=== PATIENT | male | born 1955 | race African-American/Black ===

== ENCOUNTER 2021-09-06 22:37 | Emergency (ER) | payer OTHER, SELFPAY ==
[2021-09-06 22:48] VITALS: BP 153/88; PULSE 100; RESP 16; TEMP 36.7; O2SAT 100
[2021-09-07 01:30] VITALS: PULSE 78; RESP 18; O2SAT 100
[2021-09-07] MEDS: FLUORESCEIN SOD 1 MG/STRIP EACH EYE (01:38)
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
[2021-09-07 02:49] VITALS: BP 154/83; PULSE 75; RESP 16; O2SAT 97
== END 2021-09-07 02:49 | disposition home or self-care (01) ==
PROVIDERS: Emergency Provider Emergency Medicine
DX: H53.8 Other visual disturbances (principal)
CPT/HCPCS: 99282

== ENCOUNTER 2021-10-27 12:28 | Inpatient (IN) | payer OTHER, SELFPAY ==
[2021-10-27] VITALS (31 sets, daily range): BP systolic 117–150; BP diastolic 81–99; PULSE 65–101; RESP 9–21; TEMP 36.2–36.4; O2SAT 95–100
--- NOTE | ~2021-10-27 | MR_ITS ---
EXAMINATION: MR brain/brain stem wo/w con DATE: 10/28/2021 09:11 INDICATION: Diplopia TECHNIQUE: Magnetic resonance imaging (MRI) of the brain and brainstem was performed without and with 20 mL Multihance intravenous contrast. Sequences included sagittal and axial T1-weighted SE, axial d iffusion-weighted FS SE, axial T2*-weighted GRE, axial 3D SWAN, axial T2-weighted FLAIR, and axial T2 -weighted FSE. Postcontrast axial and coronal T1-weighted SE was obtained. Apparent diffusion coeffic ient (ADC) maps were created. COMPARISON: CT dated 10/27/2021 FINDINGS: Small region of restricted diffusion at the right occipital lobe consistent with acute infarct. Small region of chronic encephalomalacia in the anterior right frontal lobe consistent with chronic infarc t. No intracranial hemorrhage or abnormal intracranial mass lesion. There are scattered areas of nons pecific increased T2-weighted signal intensity in the cerebral white matter, predominantly involving the deep and periventricular white matter which is within normal limits for age. There are no intrapa renchymal signal abnormalities seen on the other pulse sequences. The ventricles are symmetric and no rmal in size. There are no abnormal extra-axial fluid collections. Flow voids are seen in the cerebra l arteries on the T2-weighted sequences consistent with their expected patency. Mucoperiosteal thicke yolanda the bilateral ethmoid sinuses. Visualized orbits and soft tissues are unremarkable. There are no areas of abnormal enhancement on the post contrast images. IMPRESSION: 1. Small acute infarct in the right occipital lobe. 2. Small region of encephalomalacia consistent with chronic infarct in the anterior right frontal lob e. Reviewed, dictated and finalized at location A. IMPRESSION: 1. Small acute infarct in the right occipital lobe. 2. Small region of encephalomalacia consistent with chronic infarct in the ante rior right frontal lobe.
--- NOTE | ~2021-10-27 | CT_ITS ---
EXAMINATION: CT brain wo con DATE: 10/27/2021 13:23 INDICATION: Left eye palsy TECHNIQUE: Computed tomography (CT) of the head was performed without intravenous contrast. The dose- length product was 605.33 mGy-cm. Automated exposure control and iterative reconstruction technique w ere employed. COMPARISON: CT dated 09/08/2015 FINDINGS: Chronic right frontal lobe infarction with encephalomalacia. Generalized atrophy. There are scattered mild periventricular and subcortical white matter changes, most likely related to small ve ssel ischemic disease (microangiopathy). There is intracranial atherosclerosis. No ventriculomegaly o r midline shift. There is intracranial atherosclerosis. No acute intracranial hemorrhage, infarction or mass. IMPRESSION: 1. No acute intracranial abnormality. 2: Chronic right frontal lobe infarction. 3: Chronic age-related findings. Reviewed, dictated and finalized at location A.
--- NOTE | ~2021-10-27 | CT_ITS ---
EXAMINATION: CTA brain carotid DATE: 10/28/2021 18:15 CDT INDICATION: Acute CVA TECHNIQUE: Computed tomographic angiography (CTA) of the head was performed with 100 mL Omnipaque-300 intravenous contrast. CTA of the neck was performed with intravenous contrast. The dose-length produ ct was 1188.63 mGy-cm. Maximum intensity projection and volume rendered 3D-reconstructions were creat ed by the technologist on a separate workstation. Automated exposure control and iterative reconstruc tion technique were employed. COMPARISON: CT dated 10/27/2021 and MRI dated 10/28/2021. FINDINGS: HEAD CTA: There is atherosclerosis of the vertebral arteries with occlusion of the left vertebral art brando just prior to the basilar artery. There is moderate atherosclerosis of the right vertebral artery . There is atherosclerosis of the internal carotid arteries at the cavernous sinus. The anterior, mid dle and posterior cerebral arteries are symmetric. No evidence for aneurysm or occlusion. NECK CTA: There is atherosclerosis of the aorta. The common and internal carotid arteries are unremar kable. There is normal enhancement of the external carotid arteries. No significant narrowing of the internal carotid arteries. Visualized aspects of the lung parenchyma is unremarkable. There is 0% stenosis of the proximal right internal carotid artery relative to normal distal artery l umen diameter (NASCET criteria). There is 0% stenosis of the proximal left internal carotid artery re lative to normal distal artery lumen diameter. IMPRESSION: 1. 0% stenosis of the proximal right internal carotid artery relative to normal distal artery lumen d iameter (NASCET criteria). 2. 0% stenosis of the proximal left internal carotid artery relative to normal distal artery lumen di ameter. 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 Otherwise, unremarkabl e CT angiogram of the brain without evidence for significant abnormality of the anterior, middle or p osterior cerebral arteries.. Reviewed, dictated and finalized at location A. IMPRESSION: 1. 0% stenosis of the proximal right internal carotid artery relative to normal distal artery lumen diameter (NASCET criteria). 2. 0% stenosis of the proximal left internal carotid artery relative to normal distal artery lumen diameter. 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 Otherwise, unremarkable CT angiogram of the brain without evidence for signific ant abnormality of the anterior, middle or posterior cerebral arteries..
--- NOTE | ~2021-10-27 | XR_ITS ---
EXAMINATION: XR chest 2V DATE: 10/27/2021 13:23 INDICATION: Left eye palsy TECHNIQUE: Frontal and lateral views of the chest are obtained COMPARISON: 12/23/2012 FINDINGS: The lungs are free of acute opacities. No pleural effusion or pneumothorax. The cardiomedia stinal silhouette is normal. There is mild thoracic spondylosis. IMPRESSION: 1. No acute cardiopulmonary abnormality. Reviewed, dictated and finalized at location B.
--- NOTE | 2021-10-27 13:02 | ECG_ITS ---
Measurements Intervals [place] Rate: 95 P: 42 OR: 166 QRS: -18 QRSD: 99 T: 31 QT: 344 QTc: 433 Interpretive Statements SINUS RHYTHM INCOMPLETE RIGHT BUNDLE BRANCH BLOCK ST ELEVATION IN ANTEROLATERAL LEADS- PROBABLY EARLY REPOLARIZATION ABNORMALITY BASELINE ARTIFACT- I, II BORDERLINE ECG Electronically Signed On 10-27-2021 15:35:38 CDT by Tru Nath D.O.
[2021-10-27 13:16] LABS: Glucose Point of Care 115 mg/dl (65-105)
[2021-10-27 13:55] LABS: Basophils Percent Auto 0.6 % (0.2-1.2); Eosinophils Absolute Auto 0.1 K/mm3 (0-0.3); Eosinophils Percent Auto 1.7 % (0-4.4); Hematocrit 42.4 % (42.0-52.0); Hemoglobin 13.7 g/dL (14.0-18.0); Immature Granulocyte Absolute 0.01 K/mm3 (0.00-0.031); Immature Granulocyte Percent A 0.2 % (0-0.5); Lymphocytes Absolute Auto 2.71 K/mm3 (0.9-3.2); Lymphocytes Percent Auto 41.9 % (18.3-44.2); Mean Corpuscular HGB Conc 32.3 g/dl (32-36); Mean Corpuscular Hemoglobin 31.3 pg (26-34); Mean Corpuscular Volume 96.8 fl (80-100); Mean Platelet Volume 9.5 fl (7.4-10.4); Monocytes Absolute Auto 0.7 K/mm3 (0.1-0.6); Neutrophils Absolute Auto 2.9 K/mm3 (1.3-6.7); Neutrophils Percent Auto 44.6 % (45.5-73.1); Platelet Count Result 266 k/mm3 (150-375); Red Blood Count 4.38 M/mm3 (4.6-6.20); Red Cell Distribution Width 12.7 % (11.5-14.5); White Blood Count 6.5 K/mm3 (4.5-10.0)
[2021-10-27 14:06] LABS: Alanine Aminotransferase 12 U/L (6-50); Albumin Level 3.9 g/dL (3.5-5.1); Alkaline Phosphatase 79 U/L (38-126); Anion Gap 4 mmol/L (8-16); Aspartate Amino Transferase 24 U/L (17-59); Bilirubin,Total 0.9 mg/dL (0.2-1.3); Blood Urea Nitrogen 12 mg/dL (9-20); Calcium 9.1 mg/dL (8.4-10.2); Carbon Dioxide 29 mmol/L (22-30); Chloride 106 mmol/L (98-107); Estimated CRCL calculation 54 ml/min; Estimated Glomerular Filt Rate > 60; Glucose 108 mg/dL (65-110); Potassium 3.9 mmol/L (3.4-5.0); Sodium 139 mmol/L (137-145)
[2021-10-27 14:09] LABS: Prothrombin Time 13.1 Seconds (11.1-14.7)
[2021-10-27 14:10] LABS: Partial Thromboplastin Time 30.1 SECONDS (22.3-36.8)
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
--- NOTE | 2021-10-27 18:45 | ADMGEN ---
This patient, Robin Washington Jr., was admitted to 2 Medical Room 260-. Patient/family oriented to hospital policies and general routines including ID bracelet, bed and alarms, visiting hours, pain management, procedures, bathroom and other care routines, personal items, smoking policy, room service/diet, and visiting hours. Information on how to activate the Rapid Response Team has been discussed. Patient/Family are encouraged to report perceived risks to care and to ask questions if they do not understand what they are told or what they should do.
[2021-10-27 22:13] LABS: Cholesterol 251 mg/dL (0-200); HDL Direct 34 mg/dL; Triglycerides 141 mg/dL (<150)
[2021-10-27 22:24] LABS: LDL Cholesterol Direct 158 mg/dL
[2021-10-28] VITALS (8 sets, daily range): BP systolic 110–145; BP diastolic 48–75; PULSE 56–83; RESP 16–20; TEMP 35.6–36.5; O2SAT 97–100
[2021-10-28] MEDS: FLUTICASONE PROPIONATE 0.05% NA SPR 16 GM BTL (*BKC) 2 SPRAY NASAL (09:37)
[2021-10-28] MEDS: LORATADINE 10 MG TABLET PO (09:37)
[2021-10-28] MEDS: PANTOPRAZOLE 40 MG TABLET PO (09:37)
[2021-10-28] MEDS: ASPIRIN 81 MG ENTERIC TABLET PO (09:37)
[2021-10-28] MEDS: TOBRAMYCIN/DEXAMETHASONE OP 2.5 ML BTL 1 DROP EACH EYE (09:37)
--- NOTE | 2021-10-28 11:35 | PC.NURSE ---
Spoke with Dr. Iyer about patient's brain MRI results from this morning. Notified him that patient's MRI showed a small acute infarct in right occipital lobe. Dr. Iyer states he will be by to speak with patient in afternoon.
--- NOTE | 2021-10-28 14:35 | PM.IMPN ---
Progress Note: A&P Assessment and Plan (1) Acute CVA (cerebrovascular accident): Code(s): I63.9 - Cerebral infarction, unspecified Status: Acute Assessment and Plan: Patient with history of CVA >10 years ago presented with visual deficit Head CT on presentation showed no acute findings, only evidence of chronic right frontal lobe infarct Follow-up MRI showed small acute infarct in the right occipital lobe Will obtain CTA of the head and neck Echocardiogram with bubble study pending. This may not be able to be completed this hospitalization on the weekend, therefore may be done outpatient Continue to monitor on telemetry. Patient in normal sinus rhythm, occasional episodes of sinus bradycardia. No dysrhythmias. Will plan for 30 day event monitor on discharge EEG is pending Appreciate neurology consultation Continue aspirin 81 mg daily Begin atorvastatin 40 mg daily. Lipid panel reviewed. Check A1c Dietary and lifestyle modification PT and OT eval (2) Vision changes: Code(s): H53.9 - Unspecified visual disturbance Status: Acute Assessment and Plan: Likely secondary to occipital CVA (3) Elevated blood pressure reading: Code(s): R03.0 - Elevated blood-pressure reading, without diagnosis of hypertension Status: Acute Assessment and Plan: Blood pressure reviewed and has been at times elevated, however generally reasonably controlled Allow for permissive hypertension in the setting of acute CVA Monitor BP trends Patient is not on any antihypertensives (4) Depression with anxiety: Code(s): F41.8 - Other specified anxiety disorders Status: Acute Assessment and Plan: No acute issues at this time Patient is not on any medications for this Subjective Date/time seen: 10/28/21 14:35 Interval history: Date of service: 10/28/2021 Robin Washington Jr is a 66-year-old male with a history of CVA, depression, anxiety who is seen in follow-up for visual disturbances. MRI today revealed acute occipital infarct. Patient states he is feeling well today. He continues to endorse visual disturbances. His main concern is issues with his peripheral vision. He also is having trouble seeing further away and he has floaters in his vision. Denies scotoma. Denies diplopia. Denies eye pain. States ?things are out of focus.? He denies weakness, loss of balance or coordination, he denies issues with speech, denies dysphagia. He has been able to walk around without difficulty. Denies feeling dizzy or lightheaded. Does endorse a slight frontal headache. Review of Systems Review of Systems: All systems reviewed & are unremarkable except as noted in HPI and below Exam Narrative: General: Well-nourished, well-appearing 66-year-old male, sitting up in bed, comfortable, NARD Neuro: awake, alert and oriented x4, speech clear, CN II-XII intact, no pronator drift, bilateral curb and gutter laborer strength equal, gait normal HEENMT: normocephalic, atraumatic, EOMI, PERRL, sclerae anicteric Respiratory: clear to auscultation bilaterally, nonlabored breathing Cardio: regular rate, regular rhythm with S1-S2 Abdomen: nondistended, normoactive bowel sounds, soft, nontender to palpation Extremities: no edema, erythema, or tenderness to palpation, DP pulses 2+ bilaterally Skin: no rashes or lesions, warm and dry Psych: appropriate mood and affect, judgment and insight intact Objective Data Vital Signs Vital Signs: Vital Signs - 24 hr 10/27/21 14:56 10/27/21 15:43 10/27/21 16:01 Temperature Pulse Rate 76 73 76 Respiratory Rate 10 L 19 15 Blood Pressure 131/91 H 136/90 150/94 H Pulse Oximetry 100 100 97 Oxygen Delivery 10/27/21 16:40 10/27/21 17:31 10/27/21 14:45 Temperature Pulse Rate 84 71 81 Respiratory Rate 20 11 L 10 L Blood Pressure 144/99 H 134/89 Pulse Oximetry 99 99 99 Oxygen Delivery 10/27/21 14:46 10/27/21 15:21 10/27/21 15:31
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
[2021-10-29] VITALS (8 sets, daily range): BP systolic 112–140; BP diastolic 59–94; PULSE 61–99; RESP 16–20; TEMP 36.2–36.5; O2SAT 99–100
[2021-10-29 05:48] LABS: Hematocrit 42.7 % (42.0-52.0); Hemoglobin 13.8 g/dL (14.0-18.0); Mean Corpuscular HGB Conc 32.3 g/dl (32-36); Mean Corpuscular Hemoglobin 31.2 pg (26-34); Mean Corpuscular Volume 96.6 fl (80-100); Platelet Count Result 240 k/mm3 (150-375); Red Blood Count 4.42 M/mm3 (4.6-6.20); Red Cell Distribution Width 12.7 % (11.5-14.5)
[2021-10-29 06:05] LABS: Anion Gap 2 mmol/L (8-16); Blood Urea Nitrogen 12 mg/dL (9-20); Calcium 9.4 mg/dL (8.4-10.2); Carbon Dioxide 26 mmol/L (22-30); Chloride 109 mmol/L (98-107); Estimated CRCL calculation 67 ml/min; Estimated Glomerular Filt Rate > 60; Glucose 101 mg/dL (65-110); Potassium 3.9 mmol/L (3.4-5.0); Sodium 137 mmol/L (137-145)
[2021-10-29 06:22] LABS: Hemoglobin A1C 4.7 % (<5.7)
[2021-10-29] MEDS: PANTOPRAZOLE 40 MG TABLET PO (09:27)
[2021-10-29] MEDS: FLUTICASONE PROPIONATE 0.05% NA SPR 16 GM BTL (*BKC) 2 SPRAY NASAL (09:27)
[2021-10-29] MEDS: ATORVASTATIN 40 MG TABLET PO (09:27)
[2021-10-29] MEDS: TOBRAMYCIN/DEXAMETHASONE OP 2.5 ML BTL 1 DROP EACH EYE (09:27)
[2021-10-29] MEDS: ASPIRIN 81 MG ENTERIC TABLET PO (09:27)
[2021-10-29] MEDS: LORATADINE 10 MG TABLET PO (09:27)
[2021-10-29] MEDS: CLOPIDOGREL BISULFATE 300 MG TABLET PO (13:14)
--- NOTE | 2021-10-29 13:44 | PM.DS ---
DS: Admitting Diagnosis Discharge Date 10/29/2021 Admitting Diagnosis Visual disturbance DS: Discharge Diagnosis Discharge Diagnosis (1) Acute CVA (cerebrovascular accident): Code(s): I63.9 - Cerebral infarction, unspecified Status: Acute Assessment and Plan: Patient with history of CVA >10 years ago presented with visual deficit Head CT on presentation showed no acute findings, only evidence of chronic right frontal lobe infarct Follow-up MRI showed small acute infarct in the right occipital lobe CTA of the head and neck showed 0% stenosis of the proximal right and left internal carotid arteries with left vertebral artery occlusion. This is likely unrelated as patient had right occipital CVA. Echocardiogram with bubble study ordered for completion outpatient. Monitored on telemetry with normal sinus rhythm, occasional episodes of sinus bradycardia. No dysrhythmias. 30 day event monitor ordered on discharge He was seen in consultation by neurology and will follow up in 6 weeks. Aspirin 81 mg daily Clopidogrel 75 mg daily. Loading dose given during admission. Atorvastatin 40 mg daily. Lipid panel reviewed. Educated regarding dietary and lifestyle modification (2) Vision changes: Code(s): H53.9 - Unspecified visual disturbance Status: Acute Assessment and Plan: Acute disturbance secondary to occipital CVA with more chronic issues with distance vision for which he will be evaluated by optometry. (3) Elevated blood pressure reading: Code(s): R03.0 - Elevated blood-pressure reading, without diagnosis of hypertension Status: Acute Assessment and Plan: Blood pressure reviewed and initially was slightly elevated (150s/90s) but stabilized Initial elevated BP not corrected in the setting of acute CVA Patient was not on PO antihypertensives No medication was started as subsequent blood pressures were well controlled. Patient instructed to monitor BP intermittently at home and follow up with PCP in 1 week for BP check. (4) Depression with anxiety: Code(s): F41.8 - Other specified anxiety disorders Status: Acute Assessment and Plan: No acute issues at this time Patient is not on any medications for this DS: Summary Hospital Course Hospital Course: Date of admission: 10/27/2021 Date of discharge: 10/29/2021 Robin Padmini is a 66-year-old male with a history of CVA (>5 years ago, exact timeline unclear), depression, and anxiety?who presented to the emergency department on 10/27/2021 with complaints of double vision ongoing for 3 days. He had been having issues with distance vision and blurry vision for about 1-2 months prior to this and had an appointment with an remelt operator on 10/31/2021. However, the diplopia had acute onset 3 days prior to presentation and he felt this should be evaluated. On presentation to the ED, his vital signs were stable, blood pressure was 137/83, CBC and BMP unremarkable, CT of the head showed chronic right frontal lobe infarction with no acute intracranial abnormality. He was admitted to the hospitalist service for further evaluation and management was seen in consultation by Neurology. Follow-up MRI did show a small acute infarct in the right occipital lobe. This explains his acute onset visual disturbances, however his additional symptoms of difficulty with distance vision are likely unrelated. He was evaluated by Neurology. CTA of the head/neck completed which showed no stenosis of the bilateral internal carotid arteries with occlusion of the left vertebral artery. Echocardiogram with bubble study not able to be completed as patient was hospitalized over the weekend and this will be performed outpatient. He will also obtain a 30 day monitor technician. He was started on aspirin which he will continue daily and Plavix to be continued for 21 days. He was also started on atorvastatin. Dietary and lifestyle mo
== END 2021-10-29 15:00 | disposition home or self-care (01) | DRG 66 ==
LOC: ANHED 15:22 → ANH2MED 16:58
PROVIDERS: Physician Assistant; Admitting Provider Family Medicine; Emergency Provider Emergency Medicine; Visit Provider Physician Assistant
DX: I63.9 Cerebral infarction, unspecified (principal); H53.2 Diplopia; H53.8 Other visual disturbances; R03.0 Elevated blood-pressure reading, without diagnosis of hypertension; F41.8 Other specified anxiety disorders; K21.9 Gastro-esophageal reflux disease without esophagitis; E78.00 Pure hypercholesterolemia, unspecified; Z86.711 Personal history of pulmonary embolism; Z86.73 Personal history of transient ischemic attack (TIA), and cerebral infarction without residual deficits
CPT/HCPCS: 36415; 70450; 70496; 70498; 70553; 71046; 80048; 80053; 80061; 82948; 83036; 85025; 85027; 85610; 85730; 93005; 97161; 97165; 99285; A9270; A9577; Q9967

== ENCOUNTER 2021-11-24 09:11 | Outpatient (CLI) | payer OTHER, SELFPAY ==
--- NOTE | 2021-11-24 09:27 | ECHO_ITS ---
Patient Info Name: Robin Washington Age: 66 years : 1955 Gender: Male Ht: 72 in Wt: 220 lbs BSA: 2.27 m2 HR: 71 bpm BP: 130 / 88 mmHg Technical Quality: Good Exam Date: 11/24/2021 10:00 AM Exam Location: [facility] Patient Status: Outpatient Admit Date: 11/24/2021 Staff Ordering Physician: Ely Aguirre PA-C Comb Fixer: Teodoro Vance RDCS, RT Attending Provider: Ely Aguirre PA-C Referring Physician: Timothy SANDERS; Exam Type: CA echo doppler w bubble study Study Info Indications I63.119 - Cerebral infarction due to embolism of unspecified vertebral artery Complete two-dimensional, color flow and Doppler transthoracic echocardiogram is performed with agitated saline. Strain analysis performed. Summary 1. Left ventricular chamber dimension is normal. 2. Left ventricular systolic function is normal, estimated at 65-70%. 3. The left ventricular diastolic function is grade I diastolic dysfunction. 4. E/e' 6 is not elevated. 5. Global longitudinal strain is normal at -19.6%. 6. There is trace tricuspid valve regurgitation. Left Ventricle E/e' 6 is not elevated. Global longitudinal strain is normal at -19.6%. Left ventricular chamber dimension is normal. Left ventricular systolic function is normal, estimated at 65-70%. The left ventricular diastolic function is grade I diastolic dysfunction. Right Ventricle Right ventricular systolic function is normal and with normal TAPSE 1.9 cm. Right ventricular chamber dimension is normal. Left Atria Left atrial chamber dimension is normal. Right Atria Right atrial chamber dimension is normal. Atrial Septum Agitated saline injection with and without valsalva maneuver opacified right side cardiac chambers without shunt to left cardiac chambers. Intact interatrial septum visualized by 2D, color flow and agitated saline imaging. Aortic Valve The aortic valve is trileaflet. There is no aortic valve stenosis. There is no aortic valve regurgitation. Pulmonic Valve There is no pulmonic regurgitation. Mitral Valve There is no mitral valve stenosis. There is no mitral valve regurgitation. Tricuspid Valve There is trace tricuspid valve regurgitation. RVSP is not calculated due to an inadequate TR jet. Pericardium/Pleural There is no pericardial effusion. Inferior Vena Cava Normal inferior vena cava with >50% collapse upon inspiration consistent with normal right atrial pressure, 5 mmHg. Aorta The aortic root size at the sinus of Valsalva is normal. Left Ventricular Outflow Tract Name Value Normal LVOT 2D LVOT Diameter 2.0 cm LVOT Doppler LVOT Peak Gradient 3 mmHg LVOT Mean Gradient 2 mmHg LVOT VTI 19 cm LVOT VTI/AV VTI Ratio 0.8 LVOT Stroke Volume 61 ml LVOT CO 3.8 l/min LVOT CI 1.7 l/min/m2 Mitral Valve Name
== END 2021-11-24 09:12 | disposition home or self-care (01) ==
LOC: ANHCARD 09:14
PROVIDERS: PCP Family Medicine; Visit Provider Physician Assistant
DX: I63.9 Cerebral infarction, unspecified (principal)
CPT/HCPCS: 93306; 96375

== ENCOUNTER 2022-05-09 14:36 | Outpatient (CLI) | payer OTHER, SELFPAY ==
[2022-05-09 20:05] LABS: Basophils Absolute Auto 0.1 K/mm3 (0.0-0.1); Basophils Percent Auto 0.8 % (0.2-1.2); Eosinophils Absolute Auto 0.2 K/mm3 (0-0.3); Eosinophils Percent Auto 2.5 % (0-4.4); Hematocrit 48.3 % (42.0-52.0); Hemoglobin 15.1 g/dL (14.0-18.0); Immature Granulocyte Absolute 0.01 K/mm3 (0.00-0.031); Immature Granulocyte Percent A 0.2 % (0-0.5); Lymphocytes Absolute Auto 2.92 K/mm3 (0.9-3.2); Lymphocytes Percent Auto 46.5 % (18.3-44.2); Mean Corpuscular HGB Conc 31.3 g/dl (32-36); Mean Corpuscular Hemoglobin 30.1 pg (26-34); Mean Corpuscular Volume 96.4 fl (80-100); Mean Platelet Volume 10.4 fl (7.4-10.4); Monocytes Absolute Auto 0.6 K/mm3 (0.1-0.6); Monocytes Percent Auto 9.2 % (2.6-8.5); Neutrophils Absolute Auto 2.6 K/mm3 (1.3-6.7); Neutrophils Percent Auto 40.8 % (45.5-73.1); Platelet Count Result 246 k/mm3 (150-375); Red Blood Count 5.01 M/mm3 (4.6-6.20); Red Cell Distribution Width 13.2 % (11.5-14.5); White Blood Count 6.3 K/mm3 (4.5-10.0)
[2022-05-09 20:43] LABS: Alanine Aminotransferase 19 U/L (6-50); Albumin Level 4.4 g/dL (3.5-5.1); Alkaline Phosphatase 109 U/L (38-126); Anion Gap 5 mmol/L (8-16); Aspartate Amino Transferase 34 U/L (17-59); Bilirubin,Total 1.4 mg/dL (0.2-1.3); Blood Urea Nitrogen 14 mg/dL (9-20); Calcium 10.2 mg/dL (8.4-10.2); Carbon Dioxide 30 mmol/L (22-30); Chloride 106 mmol/L (98-107); Cholesterol 140 mg/dL (0-200); Estimated Glomerular Filt Rate > 60; Glucose 100 mg/dL (65-110); HDL Direct 44 mg/dL; LDL Cholesterol Direct 64 mg/dL; Potassium 4.4 mmol/L (3.4-5.0); Sodium 141 mmol/L (137-145); Triglycerides 70 mg/dL (<150)
[2022-05-09 21:08] LABS: Prostate Specific Antigen 23.7 ng/mL (< OR = 4.0)
[2022-05-10 11:45] LABS: Hemoglobin A1C 4.7 % (<5.7)
== END 2022-05-09 14:37 | disposition home or self-care (01) ==
LOC: ANHGOSHLAB 14:38
PROVIDERS: PCP Family Medicine; Visit Provider Family Medicine
DX: E78.5 Hyperlipidemia, unspecified (principal); Z12.5 Encounter for screening for malignant neoplasm of prostate
CPT/HCPCS: 36415; 80053; 80061; 83036; 84153; 85025; G0103